=== PATIENT | female | born 1965 | race Caucasian/White ===

== ENCOUNTER → 2016-11-11 | Outpatient (CLI) | payer BC ==
--- NOTE | 2016-11-12 14:02 | MAMMOGRAPHY REPORT ---
BILATERAL DIGITAL SCREENING MAMMOGRAM TOMOSYNTHESIS WITH CAD: 11/11/2016 CLINICAL HISTORY: Routine screening. Patient has no complaints. TECHNIQUE: Breast tomosynthesis in addition to standard 2D mammography was performed. Current study was also evaluated with a Computer Aided Detection (CAD) system. COMPARISON: Comparison is made to exam dated: 12/11/2014 mammogram - [facility]. BREAST COMPOSITION: There are scattered areas of fibroglandular density in both breasts. FINDINGS: No suspicious masses, calcifications, or areas of architectural distortion are noted in ei ther breast. There has been no significant interval change compared to prior exams. IMPRESSION: ACR BI-RADS CATEGORY 1: NEGATIVE There is no mammographic evidence of malignancy. A 1 year screening mammogram is recommended. The pa tient will receive written notification of the results. Approximately 10% of breast cancers are not detected with mammography. A negative mammographic report should not delay biopsy if a clinically suggestive mass is present. Beverly Vázquez M.D. ah/:11/11/2016 16:36:09 Content Production Specialist: Taylor NEFF(Hallie)(Rodolfo), [facility] letter sent: Normal 1/2 BI-RADS Code: ACR BI-RADS Category 1: Negative
== END | disposition home or self-care (01) ==
LOC: C.MAMM 12:15
PROVIDERS: ATTEND Nurse Practitioner Family
DX: Z12.31 Encounter for screening mammogram for malignant neoplasm of breast (principal)

== ENCOUNTER → 2017-11-12 | Outpatient (CLI) | payer OTHER ==
--- NOTE | 2017-11-12 15:28 | MAMMOGRAPHY REPORT ---
BILATERAL DIGITAL SCREENING MAMMOGRAM TOMOSYNTHESIS WITH CAD: 11/12/2017 CLINICAL HISTORY: Routine screening. Patient has no complaints. TECHNIQUE: The study was acquired using full field digital technology and interpreted from soft copy. Breast tomosynthesis in addition to standard 2D mammography was performed. Current study was also ev aluated with a Computer Aided Detection (CAD) system. COMPARISON: Comparison is made to exams dated: 11/11/2016 mammogram and 12/11/2014 mammogram - [facility]. Outside mammograms dated 2009, 2012 from [facility]. BREAST COMPOSITION: The tissue of both breasts is almost entirely fatty. FINDINGS: No suspicious masses, calcifications, or areas of architectural distortion are noted in either breast . There has been no significant interval change compared to prior exams. A small mass in the right u pper outer quadrant is stable dating back to at least the 2009 exam and likely represents an intramam jason lymph node. IMPRESSION: ACR BI-RADS CATEGORY 2: BENIGN There is no mammographic evidence of malignancy. A 1 year screening mammogram is recommended.( 019) The patient will receive written notification of the results. Some breast cancers are not detected with mammography. A negative mammographic report should not yisel y biopsy if a clinically suggestive mass is present. Beverly Vázquez M.D. ah/:11/12/2017 12:38:47 Laydown Machine Operator: RT Leni(R)(M), [facility] letter sent: Normal 1/2 BI-RADS Code: ACR BI-RADS Category 2: Benign
== END | disposition home or self-care (01) ==
LOC: C.MAMM 12:15
PROVIDERS: ATTEND Nurse Practitioner Family
DX: Z12.31 Encounter for screening mammogram for malignant neoplasm of breast (principal)

== ENCOUNTER 2018-09-16 19:47 | Inpatient (IN) ==
[2018-09-16] MEDS ORDERED: PANTOprazole 80 MG in DEXTROSE 5% 100 ML IV STA (20:14)
[2018-09-16] MEDS ORDERED: SODIUM CHLORIDE 0.9% 1000ML 1,000 ML IV SCH (20:15)
[2018-09-16] MEDS ORDERED: ONDANSETRON INJ 2 MG/ML 2 ML VIAL IV STA ×2 (20:17→22:54)
[2018-09-16 20:24] LABS: Basophils # (auto) 0.05 K/uL (0-0.2); Basophils % (auto) 0.5 %; Eosinophils # (auto) 0.09 K/uL (0-0.5); Eosinophils % (auto) 0.8 %; Hematocrit (blood only) 37.9 % (37-47); Hemoglobin 12.8 g/dL (12.0-16.0); Immature Granulocytes # (auto) 0.06 K/uL (0.00-0.02); Immature Granulocytes % (auto) 0.5 %; Lymphocytes # (auto) 4.24 K/uL (1.2-3.4); Lymphocytes % (auto) 38.5 %; Mean Corpuscular Hgb Conc 33.8 g/dL (32-36); Mean Corpuscular Volume 91.3 fL (80-100); Mean Platelet Volume 10.9 fL (7.4-10.4); Monocytes % (auto) 6.4 %; Neutrophils # (auto) 5.88 K/uL (1.4-6.5); Neutrophils % (auto) 53.3 %; Platelet Count 237 K/uL (130-400); RDW Coefficient of Variation 13.1 % (11.5-14.5); RDW Standard Deviation 43.7 fL (36.4-46.3); Red Blood Count 4.15 M/uL (4.2-5.4); White Blood Count 11.02 K/uL (4.8-10.8)
[2018-09-16] MEDS ORDERED: PANTOprazole 40 MG in DEXTROSE 5% 100 ML IV SCH (20:30)
[2018-09-16 20:35] LABS: Partial Thromboplastin Ratio 0.9; Partial Thromboplastin Time 24.2 Seconds (21.0-31.0); Prothrombin Time 9.9 Seconds (9.0-12.0)
[2018-09-16 20:40] LABS: Albumin Level 3.8 gm/dl (3.4-5.0); BUN Creatinine Ratio 46.2 (10-20); Calcium 9.4 mg/dl (8.5-10.1); Est GFR (African American) 92.7; Est GFR (Non-African American) 79.9
[2018-09-16 20:43] LABS: Albumin Globulin Ratio 1.1 (0.9-2); Bilirubin,Total 0.3 mg/dl (0.2-1); Globulin 3.4 gm/dl (2.5-4.0); Total Protein 7.2 gm/dl (6.4-8.2)
[2018-09-16] MEDS ORDERED: IOVERSOL 100ml IV PRN (21:06)
--- NOTE | 2018-09-16 21:33 | Emergency Department Note ---
Entered by Madhavi Garland acting as a scribe for Sadiq Nielsen DO History of Present Illness General Chief complaint: GI Assessment Stated complaint: VOMITING - LOOKS LIKE BLOOD WITH IT Time Seen by Provider: 09/16/18 20:03 Source: patient History of Present Illness Provider complaint: Vomiting Onset (ago): hour(s) 3 Location: abdomen Pain Consistency: + other (epsiode) Maximum Pain Intensity: 2 Quality: + other (vomiting) Associated symptoms: + nausea/vomiting (nausea) and + other (abdominal pain, hot) The patient is a 52 year old female who presents to the ED with complaints of an episode of vomiting that began 3 hours ago. The patient states that she has felt nauseas with intermittent abdominal pain for the past 4 days. The patient states that at 1700 today, her nausea and abdominal pain worsened. The patient notes that she tried lying down, but it did not help the pain. The patient notes that she has vomited 3 times at home and 2 times on the car ride here. The patient states that it looks like there is blood present in her vomit. The patient states that she does not feel any pain at this time, she just feels "hot" and nauseas. Home Medications Home Medications Medication Instructions Recorded Confirmed Type qyszrrg-unbodcztwlzfx-kjrskxxo 2 tab PO Q6H PRN 09/16/18 09/16/18 History [Excedrin Extra Strength] diphenhydramine-acetaminophen 2 tab PO HS PRN 09/16/18 09/16/18 History [Tylenol PM Extra Strength] lisinopril 10 mg PO QAM 09/16/18 09/16/18 History omeprazole 20 mg PO QAM 09/16/18 09/16/18 History sumatriptan succinate 50 mg PO UD 09/16/18 09/16/18 History Allergies Allergy/AdvReac Type Severity Reaction Status Date / Time No Known Allergies Allergy Unverified 09/16/18 21:22 Past Med/Surg History Medical History Migraine (Chronic) Pyloric stenosis Surgical History H/O gastric bypass (Resolved) Social History marital status: Current Living Situation: Spouse Feels Safe at Home: Yes Smoking Status: Never smoker Review of Systems See HPI for pertinent positives & negatives. and A total of 10 systems reviewed and were otherwise negative Physical Exam Vital Signs Vital Signs - 24 hr 09/16/18 19:51 09/16/18 20:10 09/16/18 20:38 Temperature 36.9 C Temperature Source Oral Sepsis Recent Fever Within 48 Hours No Sepsis Action Taken by Nursing No Action Required Pulse Rate 148 H 127 H 113 H Pulse Rate [Right Finger] Pulse Rate from SpO2 Sensor Pulse Rhythm Respiratory Rate 18 22 16 Respiratory Depth Normal Blood Pressure 155/89 H 141/99 H 130/90 Blood Pressure [Left Arm] Blood Pressure Mean 111 113 103 Blood Pressure Mean [Left Arm] Blood Pressure Position [Left Arm] Pulse Oximetry 98 97 Oxygen Delivery Method Room Air Room Air 09/16/18 20:52 09/16/18 21:27 09/16/18 21:30 Temperature Temperature Source Sepsis Recent Fever Within 48 Hours Sepsis Action Taken by Nursing Pulse Rate 117 H 123 H 117 H Pulse Rate [Right Finger] Pulse Rate from SpO2 Sensor 125 H 117 H Pulse Rhythm Regular Respiratory Rate 14 17 Respiratory Depth Blood Pressure 148/116 H 147/97 H Blood Pressure [Left Arm] Blood Pressure Mean 126 113 Blood Pressure Mean [Left Arm] Blood Pressure Position [Left Arm] Pulse Oximetry 97 98 97 Oxygen Delivery Method Room Air Room Air Room Air 09/16/18 22:00 09/16/18 22:30 09/16/18 23:00 Temperature Temperature Source Sepsis Recent Fever Within 48 Hours Sepsis Action Taken by Nursing Pulse Rate 116 H 115 H 119 H Pulse Rate [Right Finger] Pulse Rate from SpO2 Sensor 120 H 112 H 118 H Pulse Rhythm Respiratory Rate 12 18 18 Respiratory Depth Blood Pressure 139/94 144/86 H 111/88 Blood Pressure [Left Arm] Blood Pressure Mean 109 105 95 Blood Pressure Mean [Left Arm] Blood Pressure Position [Left Arm] Pulse Oximetry 95 98 97 Oxygen Delivery Method Room Air Room Air Room Air 09/17/18 00:00 09/17/18 00:11 Temperature Temperature Source Sepsis Recent Fever Within 48 Hours Sepsis Action Taken by Nursing Pulse Rate 105 H Pulse Rate [Right Finger] 109 H Pulse Rate from SpO2 Sensor 105 H Pulse Rhythm Respiratory Rate 16 18 Respiratory Depth Blood Pressure 118/74 Blood Pressure [Left Arm] 142/94 H Blood Pressure Mean 88 Blood Pressure Mean [Left Arm] 110 Blood Pressure Position [Left Arm] Sitting Pulse Oximetry 96 98 Oxygen Delivery Method Room Air Room Air CONSTITUTIONAL/VITAL SIGNS: Reviewed / noted above. GENERAL: Non-toxic in appearance. INTEGUMENTARY: Warm, dry, and [place]. HEAD: Normocephalic. EYES: without scleral icterus or trauma. ENT/OROPHARYNX: clear and moist. LYMPHADENOPATHY/NECK: Is supple without lymphadenopathy or meningismus. RESPIRATORY: Lungs clear and equal. CARDIOVASCULAR: Regular rate and rhythm. GI/ABDOMEN: Soft and nontender. No organomegaly or pulsatile mass. No rebound or guarding. Normal bowel sounds. EXTREMITIES: Warm and well perfused. BACK: No CVA tenderness. NEUROLOGICAL: Intact without focal deficits. PSYCHIATRIC: normal affect. MUSCULOSKELETAL: Normally developed with good muscle tone. Course 2004: Past medical records reviewed. The patient was evaluated in room B10. A complete history and physical exam was performed. []: I discussed the patient's case with Dr. Woo- GI specialist. He is in agreement with the patient being admitted here and will see the patient in the morning . Administered Medications Pantoprazole Sodium 40 mg/ (Dextrose) 100 mls @ 20 mls/hr IV Q5H TITA Stop: 09/17/18 01:29 Last Admin: 09/16/18 20:40 Dose: 20 mls/hr Documented by: [id number] Sodium Chloride (Nss 1000ml) 1,000 mls @ 100 mls/hr IV .Q10H TITA Stop: 09/17/18 06:14 Last Admin: 09/16/18 20:15 Dose: 100 mls/hr Documented by: [id number] Ioversol (Optiray 320 100ml) 95 ml IV ONCE PRN PRN Reason: Interaction Checking Stop: 09/20/18 21:05 Last Admin: 09/16/18 21:07 Dose: 1 ml Documented by: [id number] Discontinued Medications Pantoprazole Sodium 80 mg/ (Dextrose) 120 mls @ 480 mls/hr IV NOW STA Stop: 09/16/18 20:28 Last Infusion: 09/16/18 20:55 Dose: 0 mls/hr Documented by: [id number] Admin: 09/16/18 20:40 Dose: 480 mls/hr Documented by: [id number] Ondansetron HCl (Zofran) 4 mg IV NOW STA Stop: 09/16/18 20:18 Last Admin: 09/16/18 20:30 Dose: 4 mg Documented by: [id number] Ondansetron HCl (Zofran) 4 mg IV NOW STA Stop: 09/16/18 22:55 Last Admin: 09/16/18 23:13 Dose: 4 mg Documented by: [id number] Medical Decision Making Differential Diagnosis Differential diagnosis: Etiologies such as esophagitis, variceal bleed, [place], [place] tear, gastritis, peptic ulcer disease, AVM, inflammatory bowel disease, ischemia, diverticulosis, colitis, malignancy, coagulopathy, thrombocytopenia, fissure, hemorrhoid, epistaxis , as well as others were entertained. Medical Records Attestation: I reviewed the patient's medical records. Home Medications Current Medication List: was personally reviewed by me Laboratory Data Attestation: I reviewed the patient's lab results. Result diagrams: 09/16/18 20:14 09/16/18 20:14 Lab Results 09/16/18 09/16/18 09/16/18 Range/Units 20:14 20:14 20:14 WBC 11.02 H (4.8-10.8) K/uL RBC 4.15 L (4.2-5.4) M/uL Hgb 12.8 (12.0-16.0) g/dL Hct 37.9 (37-47) % MCV 91.3 (80-100) fL MCH 30.8 (25-34) pg MCHC 33.8 (32-36) g/dL RDW Std Deviation 43.7 (36.4-46.3) fL RDW Coeff of Buddy 13.1 (11.5-14.5) % Plt Count 237 (130-400) K/uL MPV 10.9 H (7.4-10.4) fL Immature Gran % (Auto) 0.5 % Neut % (Auto) 53.3 % Lymph % (Auto) 38.5 % [place] % (Auto) 6.4 % Eos % (Auto) 0.8 % Baso % (Auto) 0.5 % Immature Gran # (Auto) 0.06 H (0.00-0.02) K/uL Neut # (Auto) 5.88 (1.4-6.5) K/uL Lymph # (Auto) 4.24 H (1.2-3.4) K/uL [place] # (Auto) 0.70 H (0.11-0.59) K/uL Eos # (Auto) 0.09 (0-0.5) K/uL Baso # (Auto) 0.05 (0-0.2) K/uL PT 9.9 (9.0-12.0) Seconds INR 1.0 (0.9-1.1) APTT 24.2 (21.0-31.0) Seconds PTT Ratio 0.9 Sodium 142 (136-145) mmol/L Potassium 4.0 (3.5-5.1) mmol/L Chloride 107 (98-107) mmol/L Carbon Dioxide 28 (21-32) mmol/L Anion Gap 7.0 (3-11) BUN 39 H (7-18) mg/dl Creatinine 0.83 (0.6-1.2) mg/dl Est Cr Clr Drug Dosing 94.0 ml/min Est GFR ( Amer) 92.7 Est GFR (Non-Af Amer) 79.9 BUN/Creatinine Ratio 46.2 H (10-20) Glucose 128 H (70-99) mg/dl Calcium 9.4 (8.5-10.1) mg/dl Total Bilirubin 0.3 (0.2-1) mg/dl AST 21 (15-37) U/L ALT 36 (12-78) U/L Alkaline Phosphatase 97 (45-117) U/L Total Protein 7.2 (6.4-8.2) gm/dl Albumin 3.8 (3.4-5.0) gm/dl Globulin 3.4 (2.5-4.0) gm/dl Albumin/Globulin Ratio 1.1 (0.9-2) POC Stool Occult Blood (Negative) Blood Type Antibody Screen 09/16/18 09/16/18 Range/Units 20:29 20:37 WBC (4.8-10.8) K/uL RBC (4.2-5.4) M/uL Hgb (12.0-16.0) g/dL Hct (37-47) % MCV (80-100) fL MCH (25-34) pg MCHC (32-36) g/dL RDW Std Deviation (36.4-46.3) fL RDW Coeff of Buddy (11.5-14.5) % Plt Count (130-400) K/uL MPV (7.4-10.4) fL Immature Gran % (Auto) % Neut % (Auto) % Lymph % (Auto) % [place] % (Auto) % Eos % (Auto) % Baso % (Auto) % Immature Gran # (Auto) (0.00-0.02) K/uL Neut # (Auto) (1.4-6.5) K/uL Lymph # (Auto) (1.2-3.4) K/uL [place] # (Auto) (0.11-0.59) K/uL Eos # (Auto) (0-0.5) K/uL Baso # (Auto) (0-0.2) K/uL PT (9.0-12.0) Seconds INR (0.9-1.1) APTT (21.0-31.0) Seconds PTT Ratio Sodium (136-145) mmol/L Potassium (3.5-5.1) mmol/L Chloride (98-107) mmol/L Carbon Dioxide (21-32) mmol/L Anion Gap (3-11) BUN (7-18) mg/dl Creatinine (0.6-1.2) mg/dl Est Cr Clr Drug Dosing ml/min Est GFR ( Amer) Est GFR (Non-Af Amer) BUN/Creatinine Ratio (10-20) Glucose (70-99) mg/dl Calcium (8.5-10.1) mg/dl Total Bilirubin (0.2-1) mg/dl AST (15-37) U/L ALT (12-78) U/L Alkaline Phosphatase (45-117) U/L Total Protein (6.4-8.2) gm/dl Albumin (3.4-5.0) gm/dl Globulin (2.5-4.0) gm/dl Albumin/Globulin Ratio (0.9-2) POC Stool Occult Blood Positive A (Negative) Blood Type O Positive Antibody Screen NEGATIVE Imaging Data Radiologist's Impression: Radiology results as stated below per my review and the radiologist's interpretation: CT OF THE ABDOMEN AND PELVIS WITH CONTRAST CLINICAL HISTORY: Epigastric pain. Upper GI bleed. COMPARISON STUDY: None. TECHNIQUE: Following IV administration of 95 mL of Optiray-320, axial images of the abdomen and pelvis were obtained from the lung bases to the proximal femurs. Images were reviewed in the axial, sagittal, and coronal planes. IV contrast was administered without complication. Automated exposure control was utilized for the study. A dose lowering technique was utilized adhering to the principles of ALARA. CT DOSE: 926.12 mGy.cm FINDINGS: There are mild groundglass opacities within the left lower lobe. There are postoperative findings consistent with Fitz-en-Y gastric bypass. There is no evidence for a bowel obstruction. No pneumatosis, free air or portal venous gas is present. Caliber and wall thickness of small and large bowel are normal. The appendix is normal. There is no ascites or lymphadenopathy. Major vasculature is patent. There is no biliary ductal dilatation status post cholecystectomy. The liver, spleen, adrenal glands and kidneys are unremarkable with exception of a 4 mm calculus within the lower pole of the left kidney. There are no ureteral catheter. There is no hydronephrosis. No suspicious osseous lesion is noted. IMPRESSION: 1. No acute process within the abdomen or pelvis. 2. Status post Fitz-en-Y gastric bypass. No bowel obstruction. No bowel wall thickening. 3. 4 mm left renal calculus. No ureteral calculi. Electronically signed by: George Vaz M.D. 09/16/2018 9:42 PM ECG Data Attestation: I personally reviewed and interpreted this ECG as follows: Indication: nausea Rate (beats per minute): 117 Rhythm: sinus tachycardia Findings: no PAC, no PVC, no ST elevation and no ectopy Blood Pressure Blood Pressure Findings: Normal blood pressure Blood Pressure Disposition: did not require urgent referral MDM Narrative This is a 52-year-old female who presents to the ED with a chief complaint of vomiting blood. The patient states that she has had some nausea for the past 3 or 4 days. She states that she developed some abdominal cramps this morning. This evening about 5 PM, she developed vomiting. She was vomiting some blood. She vomited blood about 4 times. She does report history of gastric bypass. She has been taking Excedrin and Imitrex for migraines. She uses Excedrin daily. She states that she takes lisinopril for hypertension and Prilosec for reflux. The patient had her gastric bypass done in [facility] and has had endoscopy for ulcers by Dr. Mauricio in [place]. She is not on any blood thinners. She currently is not having any abdominal pains. Her initial blood pressure was elevated as was her heart rate. Abdomen is soft and nontender on exam. Stool is light brown guaiac positive. She states that she has intermittently had black stools. The patient CBC is unremarkable. Her hemoglobin is 12.8. White blood cell count is 11.0. BUN is 39. Chemistry panel is otherwise unremarkable. CT scan of the abdomen pelvis did not show acute process. I spoke with Dr. Woo about the patient. He is in agreement with the patient staying overnight in the hospital for observation. I spoke with Dr. Dejesus who will admit the patient. Impression & Plan Upper gastrointestinal hemorrhage Discharge Plan Visit Data Chief Complaint: GI Assessment Stated Complaint: VOMITING - LOOKS LIKE BLOOD WITH IT ED Provider: Sadiq Nielsen Discharge Problem: Upper gastrointestinal hemorrhage Patient Disposition: Being Evaluated by Hospitalist Forms Stand Alone Forms: My [facility] Prescriptions Prescriptions: No Action sumatriptan succinate 50 mg tablet 50 mg PO UD RF: 0 lisinopril 10 mg tablet 10 mg PO QAM RF: 0 omeprazole 20 mg capsule,delayed release(DR/EC) 20 mg PO QAM RF: 0 diphenhydramine-acetaminophen [Tylenol PM Extra Strength] 25-500 mg Tablet 2 tab PO HS PRN (Reason: Migraine Headache) RF: 0 Excedrin Extra Strength 250-250-65 mg Tablet 2 tab PO Q6H PRN (Reason: Migraine Headache) RF: 0 Referrals Referrals: Jagruti Seay [Primary Care Provider] - The scribe's documentation has been prepared under my direction and personally reviewed by me in its entirety. I confirm that the note above accurately reflects all work, treatment, procedures, and medical decision making performed by me.
--- NOTE | 2018-09-16 21:44 | CT Scan Report ---
CT OF THE ABDOMEN AND PELVIS WITH CONTRAST CLINICAL HISTORY: Epigastric pain. Upper GI bleed. COMPARISON STUDY: None. TECHNIQUE: Following IV administration of 95 mL of Optiray-320, axial images of the abdomen and pelvi s were obtained from the lung bases to the proximal femurs. Images were reviewed in the axial, sagitt al, and coronal planes. IV contrast was administered without complication. Automated exposure contro l was utilized for the study. A dose lowering technique was utilized adhering to the principles of A DILIA. CT DOSE: 926.12 mGy.cm FINDINGS: There are mild groundglass opacities within the left lower lobe. There are postoperative fi ndings consistent with Fitz-en-Y gastric bypass. There is no evidence for a bowel obstruction. No pne umatosis, free air or portal venous gas is present. Caliber and wall thickness of small and large bow el are normal. The appendix is normal. There is no ascites or lymphadenopathy. Major vasculature is p atent. There is no biliary ductal dilatation status post cholecystectomy. The liver, spleen, adrenal glands and kidneys are unremarkable with exception of a 4 mm calculus within the lower pole of the le ft kidney. There are no ureteral catheter. There is no hydronephrosis. No suspicious osseous lesion i s noted. IMPRESSION: 1. No acute process within the abdomen or pelvis. 2. Status post Fitz-en-Y gastric bypass. No bowel obstruction. No bowel wall thickening. 3. 4 mm left renal calculus. No ureteral calculi. Electronically signed by: George Vaz M.D. 09/16/2018 9:42 PM
--- NOTE | 2018-09-17 01:46 | History & Physical Report ---
Date of Service September 17, 2018 Assessment & Plan (1) Upper gastrointestinal hemorrhage: 52-year-old female with a past medical history of hypertension, migraines, peptic ulcer disease, pyloric stenosis and gastric bypass surgery presents with hematemesis in the setting of persistent epigastric pain. Hematemesis Stool occult blood was positive GI consulted, appreciate recommendations H&H every 4 hour, hemoglobin 12.8 on admission Continue Protonix drip, continue Zofran Keep patient n.p.o., hold home medications Hypertension Hold lisinopril 10 mg Migraines Hold Excedrin, provide education regarding risk for PUD CODE STATUS Full DVT prophylaxis SCDs/ambulate (2) Hematemesis: (3) History of peptic ulcer: (4) History of gastric bypass: (5) HTN (hypertension): (6) Migraines: History of Present Illness Primary Care Provider: Jagruti Seay 52-year-old female with a past medical history of hypertension, migraines, peptic ulcer disease, pyloric stenosis and gastric bypass surgery presents with hematemesis in the setting of persistent epigastric pain. Patient states that the pain began today shortly after lunchtime. She struggled throughout the rest of the workday with the abdominal pain and when she got home around 5:30 PM she started to develop nausea and vomiting. She stated that the vomit was brown/red in the toilet. She reports 3-4 episodes of vomiting prior to coming to the hospital. She denies blood in her stool. Patient reports a history of peptic ulcers that have been controlled with omeprazole. Patient states that her last EGD was approximately 10 years ago. The patient also received a colonoscopy at age 48 which she thinks was normal. She denies a family history of inflammatory bowel disease or colon cancer. She states that she takes 2-4 Excedrin per day for headaches. She admits to drinking approximately 4 alcoholic beverages per week, mostly isolated to the weekend. Patient describes history of pyloric stenosis diagnosed as an adult. She states that her symptoms prior to diagnosis were chronic nausea and abdominal fullness. She states that she received pylorotomy which relieved the symptoms. This occurred prior to her gastric bypass in 2005. Patient describes being fairly healthy up to this point. Allergies Allergy/AdvReac Type Severity Reaction Status Date / Time No Known Allergies Allergy Unverified 09/16/18 21:22 Home Medications Home Medications Medication Instructions Recorded Confirmed Type fshwxgr-ynopkaeptecuu-zllytzyh 2 tab PO Q6H PRN 09/16/18 09/16/18 History [Excedrin Extra Strength] diphenhydramine-acetaminophen 2 tab PO HS PRN 09/16/18 09/16/18 History [Tylenol PM Extra Strength] lisinopril 10 mg PO QAM 09/16/18 09/16/18 History omeprazole 20 mg PO QAM 09/16/18 09/16/18 History sumatriptan succinate 50 mg PO UD 09/16/18 09/16/18 History Past Med/Surg History Medical History Headache Migraine (Chronic) Obesity Pyloric stenosis Surgical History H/O gastric bypass (Resolved) Social History Preferred Language: Czech Communication Ability: Effective 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 Beliefs That Will Affect Care: None marital status: Current Living Situation: Spouse Feels Safe at Home: Yes Safety Concerns: Feels Safe At This Time Smoking Status: Never smoker Hx Alcohol Use: Yes Alcohol type: wine Hx Substance Use: No Review of Systems Review of Systems: All systems reviewed & are unremarkable except as noted in HPI & below Physical Exam Constitutional: WD/WN, vitals as above Eyes: PERRL, conjunctivae normal, anicteric sclerae ENMT: external ear and nose normal, oropharynx normal Neck: trachea midline, no thyromegaly Respiratory: normal respiratory effort, lungs clear to auscultation Cardiovascular: RRR, no murmur, no edema Gastrointestinal (Abdomen): Inspection/Auscultation: abdomen normal to inspection, normal bowel sounds and + abdominal surgical scar; abdomen not distended, no high-pitched sounds and no hypoactive bowel sounds Percussion/Palpation: + abdomen tender (Epigastric); no guarding and abdomen not rigid Musculoskeletal: no cyanosis or clubbing, extremities motor strength 5/5 Skin: no rashes, warm and dry Neurologic: PERRL, EOMI, accommodation nl, no face palsy, no dysarthria Psychiatric: A+Ox3, euthymic affect Results & Data Vital Signs (Past 12 Hours) Vital Signs Temp Pulse Pulse Resp BP BP Pulse Ox 09/17/18 01:01 104 H 21 121/71 97 09/17/18 00:12 111 H 21 142/94 H 94 09/17/18 00:11 109 H 18 142/94 H 98 09/17/18 00:05 110 H 15 142/94 H 98 09/17/18 00:00 105 H 16 118/74 96 09/16/18 23:00 119 H 18 111/88 97 09/16/18 22:30 115 H 18 144/86 H 98 09/16/18 22:00 116 H 12 139/94 95 09/16/18 21:30 117 H 17 147/97 H 97 09/16/18 21:27 123 H 14 148/116 H 98 09/16/18 20:52 117 H 97 09/16/18 20:38 113 H 16 130/90 97 09/16/18 20:10 127 H 22 141/99 H 09/16/18 19:51 36.9 C 148 H 18 155/89 H 98 Code Status & VTE Plan Code Status Full code VTE Prophylaxis Plan VTE Prophylaxis will be ordered: Yes Supervising Physician Co-Signing Physician Notes Attending addendum: I have physically seen this patient, have supervised the medical residents activities, and agree with the H&P unless as otherwise noted. Assessment and Plan: GI bleed/history of Fitz-en-Y gastric bypass/history of peptic ulcer disease- Admit to monitored bed. NPO Continue Protonix drip begun in ED. Serial H&H's every 4 hours. Zofran 4 mg IV every 6 hours PRN. Consult gastroenterology. IV fluids. Serial CBC with differential, chemistry profile and magnesium level. Remainder of orders and notations as noted. PG Care Time/CCT Total # of Minutes Spent Total Time Spent with Patient: Total time spent is greater than 50% in coordination of care (as documented) at patient's floor/unit and/or counseling patient: Resident Activity Tracking Resident Involvement: Resident Care Provided Care Provided: Adult Hospital Medicine
[2018-09-17 02:07] LABS: Hematocrit (blood only) 32.2 % (37-47); Hemoglobin 10.7 g/dL (12.0-16.0)
[2018-09-17] MEDS ORDERED: ONDANSETRON INJ 2 MG/ML 2 ML VIAL IV PRN ×2 (02:55→13:54)
[2018-09-17] MEDS ORDERED: PROMETHAZINE HCL 6.25 MG in SODIUM CHLORIDE 0.9% 50 ML IV PRN (02:55)
[2018-09-17] MEDS: PANTOprazole 40 MG in DEXTROSE 5% 100 ML IV SCH ×5 (04:31→23:11)
[2018-09-17] MEDS ORDERED: SODIUM CHLORIDE 0.9% 250 ML IV PRN (07:41)
[2018-09-17 07:42] LABS: Basophils # (auto) 0.04 K/uL (0-0.2); Basophils % (auto) 0.5 %; Eosinophils # (auto) 0.06 K/uL (0-0.5); Eosinophils % (auto) 0.8 %; Hematocrit (blood only) 31.6 % (37-47); Hemoglobin 10.4 g/dL (12.0-16.0); Immature Granulocytes # (auto) 0.04 K/uL (0.00-0.02); Immature Granulocytes % (auto) 0.5 %; Lymphocytes # (auto) 2.81 K/uL (1.2-3.4); Lymphocytes % (auto) 38.1 %; Mean Corpuscular Hgb Conc 32.9 g/dL (32-36); Mean Corpuscular Volume 91.3 fL (80-100); Mean Platelet Volume 10.7 fL (7.4-10.4); Monocytes # (auto) 0.54 K/uL (0.11-0.59); Monocytes % (auto) 7.3 %; Neutrophils # (auto) 3.88 K/uL (1.4-6.5); Neutrophils % (auto) 52.8 %; Platelet Count 198 K/uL (130-400); RDW Coefficient of Variation 13.2 % (11.5-14.5); RDW Standard Deviation 43.7 fL (36.4-46.3); Red Blood Count 3.46 M/uL (4.2-5.4); White Blood Count 7.37 K/uL (4.8-10.8)
--- NOTE | 2018-09-17 07:47 | Family Medicine Progress Note ---
Date of Service September 17, 2018 Assessment & Plan (1) Upper gastrointestinal hemorrhage: GI bleed/acute blood loss anemia/mild hemodynamic changes associated with hypovolemiaIV fluids, blood on hold given her drop in hemoglobin and tachycardia, EGD today given risk for something that may require further intervention. Continue to follow, continue supportive care Headachesrosa isela appears to have classic cycle of migraine and tension headaches playing off of each other, the suboccipital tension headaches being a major causative role of her overall headache cycle. Given that we need to get her off of Excedrin, and given that we want to prevent rebound headaches with other [id number]-rhm-lkgnbti's, OMT directed at alleviating the tension headaches with Imitrex directed specifically for her migraine days appears to be pretty plausible approach to improve her situation. Seems to be furthered by the fact that she showed a very good response to 1 treatment with OMT. Would anticipate ongoing OMT as an outpatient to alleviate the tension headaches, and to continue to educate on more judicious use of the Imitrex specifically for migraines. Somatic dysfunction cervical regionOMT as above Hypertension Hold lisinopril 10 mg, continue to follow Migraines see above under headaches CODE STATUS Full DVT prophylaxis SCDs/ambulate (pharmacologic contraindicated due to GI bleed; mechanical of dubious benefit in actual VTE prevention) (2) Hematemesis: (3) History of peptic ulcer: (4) History of gastric bypass: (5) HTN (hypertension): (6) Migraines: (7) Acute blood loss anemia: (8) Tachycardia: (9) Headache: (10) Somatic dysfunction of cervical region: Supervising Physician Co-Signing Physician Notes note predominantly completed by myself, OMT done by myself. Subjective Seen in follow-up from early a.m. admission. She has not had any further hematemesis. She has had no melena or hematochezia. She does not feel weak or lightheaded. Of note her hemoglobin did drop, and she is tachycardic. Separately she notes that she has frequent and chronic headaches. It is more often than not that she will have a headache every day in a month. She notes most of the more intense mostly left-sided but throbbing, however she has separate headaches that are behind the left eye with visual disturbances and are far more intense. She notes these more intense headaches with the associated neurologic symptoms happen about 3-4 times a month. She notes that when she takes Imitrex she feels worn out for the rest of the day, so she does try to avoid this. Between this and her daily headaches she takes a lot of Excedrin. Case discussed with gastroenterology, endoscopy greatly appreciated. Vitals noted, in general she is awake and alert fatigued but no distress. HEENT normocephalic atraumatic mucous members moist. Breathing unlabored no accessory muscle use good effort. Osteopathic/musculoskeletal shows her left greater than right but bilateral suboccipitals to be high in tone, tender, decreased range of motioninhibitory pressure done bilaterally, good tissue response on the left, patient tolerated well and noted a significant improvement in her headache. GI bleed/acute blood loss anemia/mild hemodynamic changes associated with hypovolemiaIV fluids, blood on hold given her drop in hemoglobin and tachycardia, EGD today given risk for something that may require further intervention. Continue to follow, continue supportive care Headachesrosa isela appears to have classic cycle of migraine and tension headaches playing off of each other, the suboccipital tension headaches being a major causative role of her overall headache cycle. Given that we need to get her off of Excedrin, and given that we want to prevent rebound headaches with other [id number]'s, OMT directed at alleviating the tension headaches with Imitrex directed specifically for her migraine days appears to be pretty plausible approach to improve her situation. Seems to be furthered by the fact that she showed a very good response to 1 treatment with OMT. Would anticipate ongoing OMT as an outpatient to alleviate the tension headaches, and to continue to educate on more judicious use of the Imitrex specifically for migraines. Somatic dysfunction cervical regionOMT as above Review of Systems Review of Systems: All systems reviewed & are unremarkable except as noted in HPI & below Physical Exam Physical Exam: Vitals noted, in general she is awake and alert fatigued but no distress. HEENT normocephalic atraumatic mucous members moist. Breathing unlabored no accessory muscle use good effort. Osteopathic/musculoskeletal shows her left greater than right but bilateral suboccipitals to be high in tone, tender, decreased range of motioninhibitory pressure done bilaterally, good tissue response on the left, patient tolerated well and noted a significant improvement in her headache. Constitutional: WD/WN, vitals as above Eyes: PERRL, conjunctivae normal, anicteric sclerae ENMT: external ear and nose normal, oropharynx normal Neck: trachea midline, no thyromegaly Respiratory: normal respiratory effort, lungs clear to auscultation Cardiovascular: RRR, no murmur, no edema Gastrointestinal (Abdomen): Inspection/Auscultation: abdomen normal to inspection, normal bowel sounds and + abdominal surgical scar; abdomen not distended, no high-pitched sounds and no hypoactive bowel sounds Percussion/Palpation: + abdomen tender (Epigastric); no guarding and abdomen not rigid Musculoskeletal: no cyanosis or clubbing, extremities motor strength 5/5 Skin: no rashes, warm and dry Neurologic: PERRL, EOMI, accommodation nl, no face palsy, no dysarthria Psychiatric: A+Ox3, euthymic affect Results & Data Vital Signs (Past 12 Hours) Vital Signs Temp Pulse Pulse Resp BP BP Pulse Ox 09/17/18 07:17 36.7 C 117 H 16 113/73 100 09/17/18 02:15 36.6 C 113 H 16 137/79 98 09/17/18 02:03 118 H 16 113/69 96 09/17/18 01:01 104 H 21 121/71 97 09/17/18 00:12 111 H 21 142/94 H 94 09/17/18 00:11 109 H 18 142/94 H 98 09/17/18 00:05 110 H 15 142/94 H 98 09/17/18 00:00 105 H 16 118/74 96 09/16/18 23:00 119 H 18 111/88 97 09/16/18 22:30 115 H 18 144/86 H 98 09/16/18 22:00 116 H 12 139/94 95 09/16/18 21:30 117 H 17 147/97 H 97 09/16/18 21:27 123 H 14 148/116 H 98 09/16/18 20:52 117 H 97 09/16/18 20:38 113 H 16 130/90 97 09/16/18 20:10 127 H 22 141/99 H 09/16/18 19:51 36.9 C 148 H 18 155/89 H 98 PG Care Time/CCT Total # of Minutes Spent Total Time Spent with Patient: Total time spent is greater than 50% in coordination of care (as documented) at patient's floor/unit and/or counseling patient: Resident Activity Tracking Resident Involvement: Resident Care Provided Care Provided: Adult Hospital Medicine
[2018-09-17 08:01] LABS: BUN Creatinine Ratio 44.3 (10-20); Calcium 8.6 mg/dl (8.5-10.1); Creatinine Clr Calc Pharmacy 116.8 ml/min; Est GFR (African American) 114.9; Est GFR (Non-African American) 99.2; Potassium 4.4 mmol/L (3.5-5.1)
[2018-09-17] MEDS: SODIUM CHLORIDE 0.9% 1000ML 1,000 ML IV SCH ×2 (08:38→17:01)
[2018-09-17] MEDS ORDERED: DiphenhydrAMINE HCL 50 MG/ML VIAL IV STA (09:28)
--- NOTE | 2018-09-17 13:50 | Anesthesiology Consultation ---
Date of Service September 17, 2018 Assessment & Plan (1) Encounter for pre-operative examination: Chart Review Chart Review: Acceptable Risk for Surgery History Surgery Operation Date: 09/17/18 14:00 Proposed Procedures p EGD Hemostasis - Bandar Woo Height/Weight Height: 5 ft 8 in Weight: 99.7 kg Allergies Allergy/AdvReac Type Severity Reaction Status Date / Time No Known Allergies Allergy Unverified 09/16/18 21:22 Medications Home Medications Medication Instructions Recorded Confirmed Last Taken [id number]-nofpriofkvtfr-wdkszduf 2 tab PO Q6H PRN 09/16/18 09/16/18 09/16/18 13:00 [Excedrin Extra Strength] 2 tablets diphenhydramine-acetaminophen 2 tab PO HS PRN 09/16/18 09/16/18 09/15/18 21:00 [Tylenol PM Extra Strength] lisinopril 10 mg PO QAM 09/16/18 09/16/18 09/16/18 omeprazole 20 mg PO QAM 09/16/18 09/16/18 09/16/18 sumatriptan succinate 50 mg PO UD 09/16/18 09/16/18 Unknown Active Medications Generic Name Dose Route Start Last Admin Trade Name Freq PRN Reason Stop Dose Admin Pantoprazole Sodium 40 mg/ 100 mls @ 20 mls/hr 09/17/18 03:30 09/17/18 13:10 Dextrose IV 10/17/18 03:29 20 mls/hr Q5H TITA Administration Sodium Chloride 1,000 mls @ 125 mls/hr 09/17/18 07:45 09/17/18 08:38 Nss 1000ml IV 10/17/18 07:44 125 mls/hr .Q8H TITA Administration Past Medical History Medical History Migraine (Chronic) Obesity Pyloric stenosis Past Surgical History Surgical History H/O gastric bypass (Resolved) Social History Smoking Status: Never smoker Hx Alcohol Use: Yes Alcohol type: wine alcohol intake frequency: holidays/special occasions only Hx Substance Use: No Physical Exam Vital Signs Last Vital Signs Temp 36.8 C 09/17/18 11:21 Pulse 96 H 09/17/18 11:21 Resp 16 09/17/18 11:21 BP 105/71 09/17/18 11:21 Pulse Ox 96 09/17/18 11:21 Testing Laboratory Results 09/17/18 07:18 09/17/18 07:18 09/16/18 09/16/18 20:14 20:29 PT 9.9 INR 1.0 APTT 24.2 Blood Type O Positive Antibody Screen NEGATIVE 09/17/18 07:18 09/17/18 07:18 09/16/18 09/16/18 20:14 20:29 PT 9.9 INR 1.0 APTT 24.2 Blood Type O Positive Antibody Screen NEGATIVE Electrocardiogram Date: 09/16/18 Findings: + ST @ (117)
[2018-09-17] MEDS ORDERED: ATROPINE SULFATE 0.1 MG/ML 10ML SYR IV PRN (13:54)
--- NOTE | 2018-09-17 14:00 | History & Physical Report ---
Date of Service September 17, 2018 History of Present Illness Chief Complaint: hematemesis Primary Care Provider: Jagruti Seay For EGD Allergies Allergy/AdvReac Type Severity Reaction Status Date / Time No Known Allergies Allergy Unverified 09/16/18 21:22 Home Medications Home Medications Medication Instructions Recorded Confirmed Type mtusjec-ljfqlyjrmuhtd-uskufzhp 2 tab PO Q6H PRN 09/16/18 09/16/18 History [Excedrin Extra Strength] diphenhydramine-acetaminophen 2 tab PO HS PRN 09/16/18 09/16/18 History [Tylenol PM Extra Strength] lisinopril 10 mg PO QAM 09/16/18 09/16/18 History omeprazole 20 mg PO QAM 09/16/18 09/16/18 History sumatriptan succinate 50 mg PO UD 09/16/18 09/16/18 History Past Med/Surg History Medical History Migraine (Chronic) Obesity Pyloric stenosis Surgical History H/O gastric bypass (Resolved) Social History Preferred Language: French Communication Ability: Effective 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 Beliefs That Will Affect Care: None marital status: Current Living Situation: Spouse Feels Safe at Home: Yes Safety Concerns: Feels Safe At This Time Smoking Status: Never smoker Hx Alcohol Use: Yes Alcohol type: wine Hx Substance Use: No Physical Exam Constitutional: + obese Respiratory: normal respiratory effort Cardiovascular: Rate/Rhythm: regular rate and regular rhythm Gastrointestinal (Abdomen): Percussion/Palpation: abdomen soft Epigastric scar Results & Data Vital Signs (Past 12 Hours) Vital Signs Temp Pulse Pulse Resp BP BP Pulse Ox 09/17/18 11:21 36.8 C 96 H 16 105/71 96 09/17/18 07:17 36.7 C 117 H 16 113/73 100 09/17/18 02:15 36.6 C 113 H 16 137/79 98 09/17/18 02:03 118 H 16 113/69 96 Code Status & VTE Plan VTE Prophylaxis Plan VTE Prophylaxis will be ordered: Yes
[2018-09-17] MEDS ORDERED: LIDOCAINE HCL 2% 2 ML VIAL/AMP(20MG/ML) INFIL ONE (14:13)
[2018-09-17] MEDS ORDERED: PROPOFOL IV EMULSION 10 MG/ML 20 ML VIAL IV ONE (14:13)
--- NOTE | 2018-09-17 14:46 | GI REPORT ---
Patient Name: Rebeka Vu Procedure Date: 09/17/2018 1:56 PM Date of : 1965 Admit Type: Inpatient Age: 52 Gender: Female Attending MD: Bandar Woo MD Procedure: Upper GI endoscopy Providers: Bandar Woo MD Referring MD: Referred Self Indications: Hematemesis Medicines: Propofol total dose 200 mg IV, Lidocaine 40 mg IV Complications: No immediate complications. Estimated Blood Loss: Estimated blood loss: none. Procedure: Pre-Anesthesia Assessment: - Prior to the procedure, a History and Physical was performed, and patient medications, allergies and sensitivities were reviewed. The patient's tolerance of previous anesthesia was reviewed. - The risks and benefits of the procedure and the sedation options and risks were discussed with the patient. All questions were answered and informed consent was obtained. After obtaining informed consent, the endoscope was passed under direct vision. Throughout the procedure, the patient's blood pressure, pulse, and oxygen saturations were monitored continuously. The Endoscope was introduced through the mouth, and advanced to the body of the stomach. The upper GI endoscopy was accomplished without difficulty. The patient tolerated the procedure well. Findings: The Z-line was regular and was found 39 cm from the incisors. The examined esophagus was normal. Evidence of a Fitz-en-Y gastrojejunostomy was found. The gastrojejunal anastomosis was characterized by ulceration. This was not traversed. [Jejunojejunal Description]. [Rdmg-kx-Dltenqx Examined?] [Mlfm-rk-Ofeejac Length] [Rhfv-xr-Zjfvlnj Description]. Two non-bleeding linear gastric ulcers with a visible vessel were found at the anastomosis. The largest lesion was 7 mm in largest dimension. For hemostasis, two hemostatic clips were successfully placed (MR conditional). There was no bleeding during, or at the end, of the procedure. Impression: - Z-line regular, 39 cm from the incisors. - Normal esophagus. - Fitz-en-Y gastrojejunostomy with gastrojejunal anastomosis characterized by ulceration. - Non-bleeding gastric ulcers with a visible vessel. Clips (MR conditional) were placed. - No specimens collected. Recommendation: - [facility]. Bandar Woo M.D. Bandar Woo MD 09/17/2018 2:45:39 PM This report has been signed electronically. Note Initiated On: 09/17/2018 1:56 PM Number of Addenda: 0 I attest to the content of the Intraoperative Record and orders documented therein, exceptions below {[id number]}
--- NOTE | 2018-09-17 16:20 | Anesthesiology Progress Note ---
Date of Service September 17, 2018 Anesthesia Post Procedure Vital Signs Vital Signs: Temp Pulse Pulse Resp BP BP Pulse Ox 09/17/18 15:52 36.7 C 92 H 18 109/72 98 09/17/18 15:30 36.8 C 91 H 20 126/77 991 H 09/17/18 15:20 36.8 C 92 H 21 126/77 97 09/17/18 15:10 36.8 C 101 H 22 116/77 97 09/17/18 15:00 36.8 C 91 H 18 106/64 97 09/17/18 14:50 36.9 C 89 18 90/52 L 96 09/17/18 14:43 36.9 C 94 H 16 84/51 L 96 09/17/18 11:21 36.8 C 96 H 16 105/71 96 09/17/18 07:17 36.7 C 117 H 16 113/73 100 09/17/18 02:15 36.6 C 113 H 16 137/79 98 09/17/18 02:03 118 H 16 113/69 96 09/17/18 01:01 104 H 21 121/71 97 09/17/18 00:12 111 H 21 142/94 H 94 09/17/18 00:11 109 H 18 142/94 H 98 09/17/18 00:05 110 H 15 142/94 H 98 09/17/18 00:00 105 H 16 118/74 96 09/16/18 23:00 119 H 18 111/88 97 09/16/18 22:30 115 H 18 144/86 H 98 09/16/18 22:00 116 H 12 139/94 95 09/16/18 21:30 117 H 17 147/97 H 97 09/16/18 21:27 123 H 14 148/116 H 98 09/16/18 20:52 117 H 97 09/16/18 20:38 113 H 16 130/90 97 09/16/18 20:10 127 H 22 141/99 H 09/16/18 19:51 36.9 C 148 H 18 155/89 H 98 Transfer of Care Handoff Completed per policy Notes Mental Status: alert / awake / arousable Patient Amnestic to Procedure: Yes Nausea / Vomiting: adequately controlled Pain: adequately controlled Airway Patency, RR, SpO2: stable & adequate BP & HR: stable & adequate Hydration State: stable & adequate Anesthetic Complications: no major complications apparent
[2018-09-18] MEDS ORDERED: SUMAtriptan succinate 100 MG TAB PO STA (00:37)
[2018-09-18] MEDS: SODIUM CHLORIDE 0.9% 1000ML 1,000 ML IV SCH ×2 (01:21→07:32)
[2018-09-18] MEDS: PANTOprazole 40 MG in DEXTROSE 5% 100 ML IV SCH (04:01)
[2018-09-18 05:39] LABS: Basophils # (auto) 0.02 K/uL (0-0.2); Basophils % (auto) 0.4 %; Eosinophils # (auto) 0.08 K/uL (0-0.5); Eosinophils % (auto) 1.7 %; Hematocrit (blood only) 27.5 % (37-47); Hemoglobin 9.1 g/dL (12.0-16.0); Immature Granulocytes # (auto) 0.01 K/uL (0.00-0.02); Immature Granulocytes % (auto) 0.2 %; Lymphocytes % (auto) 44.9 %; Mean Corpuscular Hgb Conc 33.1 g/dL (32-36); Mean Corpuscular Volume 90.8 fL (80-100); Mean Platelet Volume 10.1 fL (7.4-10.4); Monocytes # (auto) 0.26 K/uL (0.11-0.59); Monocytes % (auto) 5.6 %; Neutrophils # (auto) 2.21 K/uL (1.4-6.5); Neutrophils % (auto) 47.2 %; Platelet Count 161 K/uL (130-400); RDW Coefficient of Variation 13.1 % (11.5-14.5); RDW Standard Deviation 43.4 fL (36.4-46.3); Red Blood Count 3.03 M/uL (4.2-5.4); White Blood Count 4.68 K/uL (4.8-10.8)
--- NOTE | 2018-09-18 08:44 | Anesthesiology Progress Note ---
Date of Service September 18, 2018 Anesthesia Post Procedure Vital Signs Vital Signs: Temp Pulse Resp BP BP Pulse Ox 09/18/18 07:12 36.8 C 103 H 16 130/83 98 09/18/18 04:27 36.7 C 93 H 17 126/83 97 09/17/18 23:00 36.8 C 82 21 106/69 95 09/17/18 19:10 36.9 C 92 H 16 114/72 90 09/17/18 15:52 36.7 C 92 H 18 109/72 98 09/17/18 15:30 36.8 C 91 H 20 126/77 991 H 09/17/18 15:20 36.8 C 92 H 21 126/77 97 09/17/18 15:10 36.8 C 101 H 22 116/77 97 09/17/18 15:00 36.8 C 91 H 18 106/64 97 09/17/18 14:50 36.9 C 89 18 90/52 L 96 09/17/18 14:43 36.9 C 94 H 16 84/51 L 96 09/17/18 11:21 36.8 C 96 H 16 105/71 96 Notes Mental Status: alert / awake / arousable Patient Amnestic to Procedure: Yes Nausea / Vomiting: adequately controlled Pain: adequately controlled Airway Patency, RR, SpO2: stable & adequate BP & HR: stable & adequate Hydration State: stable & adequate Anesthetic Complications: no major complications apparent Notes: pt states she had migraine postop but does not necessarily think it was from anesthesia; she thinks it was triggered from stress; Migraine has resolved.
--- NOTE | 2018-09-18 15:15 | Discharge Summary ---
Date of Service September 18, 2018 Admission HPI Per Admitting Provider For EGD Principal Diagnosis GI bleed due to ulcer w visible vessel Discharge Exam General she is awake and alert pleasant no distress. HEENT normocephalic atraumatic mucous members moist. Breathing unlabored no accessory muscle use good effort. Skin shows no rashes no pallor or icterus. CN 2-12 grossly intact gross motor and sensory intact. Discharge Data Allergies Allergy/AdvReac Type Severity Reaction Status Date / Time No Known Allergies Allergy Unverified 09/16/18 21:22 Consultations 09/17/18 00:27 ED Decision to Admit Stat 09/17/18 02:55 Consult Gastroenterology Routine Procedures Performed Operation Date: 09/17/18 14:00 Actual Procedures p Esophagogastroduodenoscopy Hemostasis(Not Applicable) - Bandar Woo Attending MD: Bandar Woo MD Procedure: Upper GI endoscopy Providers: Bandar Woo MD Referring MD: Referred Self Indications: Hematemesis Medicines: Propofol total dose 200 mg IV, Lidocaine 40 mg IV Complications: No immediate complications. Estimated Blood Loss: Estimated blood loss: none. Procedure: Pre-Anesthesia Assessment: - Prior to the procedure, a History and Physical was performed, and patient medications, allergies and sensitivities were reviewed. The patient's tolerance of previous anesthesia was reviewed. - The risks and benefits of the procedure and the sedation options and risks were discussed with the patient. All questions were answered and informed consent was obtained. After obtaining informed consent, the endoscope was passed under direct vision. Throughout the procedure, the patient's blood pressure, pulse, and oxygen saturations were monitored continuously. The Endoscope was introduced through the mouth, and advanced to the body of the stomach. The upper GI endoscopy was accomplished without difficulty. The patient tolerated the procedure well. Findings: The Z-line was regular and was found 39 cm from the incisors. The examined esophagus was normal. Evidence of a Fitz-en-Y gastrojejunostomy was found. The gastrojejunal anastomosis was characterized by ulceration. This was not traversed. [Jejunojejunal Description]. [Xhwt-tq-Ixqbuwi Examined?] [Ipae-ag-Faqzkkk Length] [Tyay-ex-Syifnnm Description]. Two non-bleeding linear gastric ulcers with a visible vessel were found at the anastomosis. The largest lesion was 7 mm in largest dimension. For hemostasis, two hemostatic clips were successfully placed (MR conditional). There was no bleeding during, or at the end, of the procedure. Impression: - Z-line regular, 39 cm from the incisors. - Normal esophagus. - Fitz-en-Y gastrojejunostomy with gastrojejunal anastomosis characterized by ulceration. - Non-bleeding gastric ulcers with a visible vessel. Clips (MR conditional) were placed. - No specimens collected. Recommendation: - [facility]. Bandar Woo M.D. Bandar Woo MD Ordered Studies 09/16/18 20:15 CT abd pelvis IV con only Stat Hospital Course (1) Upper gastrointestinal hemorrhage: Related to ulcers. Suffered a significant amount of acute blood loss anemia, but did not require transfusion. Now appears stable and feeling well. Stable for discharge to home. Ulcers appear to have been predominantly brought about by Excedrin, she has been cautioned to cease all aspirin/Excedrin/NSAIDs and avoid alcohol for at least several weeks. Protonix 40 mg twice daily for the short, but indefinite future. Reducing to daily and eventually DC entirely based on how she is doing and follow-up with her PCP and gastroenterology. Possible need for follow-up EGD if there are any questions, or any difficulty with her hemoglobin improving. (2) History of peptic ulcer: See above (3) Acute blood loss anemia: Hemoglobin now 9.1. Appearing hemodynamically stable, feeling good. Follow-up CBC later this week (4) Headache: Manjit appears to have classic cycle of migraine and tension headaches playing off of each other, the suboccipital tension headaches being a major causative role of her overall headache cycle. Given that we need to get her off of Excedrin, and given that we want to prevent rebound headaches with other [id number]-[id number]'s, OMT directed at alleviating the tension headaches with Imitrex directed specifically for her migraine days appears to be pretty plausible approach to improve her situation. Seems to be furthered by the fact that she showed a very good response to 1 treatment with OMT. Would anticipate ongoing OMT as an outpatient to alleviate the tension headaches, and to continue to educate on more judicious use of the Imitrex specifically for migraines. (5) Somatic dysfunction of cervical region: See above, OMT as an outpatient. Total Time Total Time Spent Total Time Spent (In Minutes): >30 Discharge Plan Discharge Items Patient Disposition: Home - Self-Care Reason For Visit: HEMATEMESIS Discharge Diagnosis: upper GI bleed due to ulcer Discharge Goals: Diagnostic testing and Therapeutic intervention Activity: Resume your previous activity Non-emergency contact: Primary Care Provider and Film Laboratory Technician Call non-emergency contact if: you have any medication questions Follow-up/Referrals: Jagruti Seay [Primary Care Provider] - Diet: Regular Addtl Provider Instructions: GI bleeding -due to ulcer which appears to have mostly been brought on by excedrin -obviously, stop excedrin (and avoid any aspirin or anti-inflammatory (aleve, ibuprofen, etc) -tylenol (acetaminophen) is OK as long as you keep it under 2000mg in a day -take protonix (pantoprazole) twice a day for the foreseeable future -- once it's clear this is healing/improving, Martha and Dr Woo will be able to guide you on dropping it down to once a day. depending on how you're doing, I'd expect the twice a day to be somewhere around 1-3 months, with once a day for a while thereafter. If things are at all confusing on how you're recovering, Dr Woo may need to repeat an EGD to check on healing -avoid alcohol for at least the next several weeks -- it's a fairly concentrated solution that acts to dry out mucosa, so it slows down/impedes healing -if you feel weak/lightheaded over the next two weeks - assume it's a symptom of blood loss until proven otherwise (ie get checked out right away) -of course, if you have recurrence of bleeding, also get checked out right away. headaches -it appears that your headaches are a pretty classic "vicious cycle" of tension headaches playing off of migraine headaches -- usually what happens is that the tension headache causes the bulk of the daily headaches, and the head-pain can be a trigger for migraine headaches, then the migraine headaches make the tension headaches worse, and the whole situation cycles -the migraines are going to be the ones that are more increased in intensity, with the flashy/jaggy light you described; you noted those seem to be around 3-4 a month -the rest of the headaches are quite likely all tension -"the anatomy of a tension headache" is generally started with tightness in the muscles that tie our head to our neck - called the suboccipital muscles. these muscles not only can create pain at the back of the head/neck, but because a nerve (the greater occipital nerve) runs through them and gives sensation up and around the top of our head, tightness in the suboccipital muscles can then put pressure on the greater occipital nerve and create a headache that covers most of our head -the goal will be to try to go after each type of headache individually to treat more precisely and reduce your overall amount of headaches -migraine - when you have the jagged light AND it's clear that the headache is worse in intensity, this would signify a migraine --> that would be when it's worth taking your imitrex. on those days, take the imitrex as early into the headache as it's clear that you're dealing with a migraine, as migraines tend to respond more quickly / better when triptan medications are taken earlier in the course. don't take the imitrex if it's not clear that it's a migraine, though, as triptans treat migraines by constricting the dilated blood vessels that lead to a migraine, so the imitrex will do nothing to help with a tension headache -tension headache - the goal will be to settle the tension in those suboccipital muscles to reduce the trigger causing the tension headaches, and reduce the severity/frequency of those (and if all goes perfect, also reduce the amount of triggering of migraines). because pain medications only really "cover" the symptoms of a tension headache rather than reducing the actual cause, and because (in a cruel stroke of irony) taking pain medications routinely for tension headaches can create a third type of headache called rebound headaches, it's going to be better to have hands-on manipulative medicine as the mainstay to treat the tension headaches -in [facility] ([facility]'s practice, but at the [facility]) two of our residents are DO's that are quite good at manipulative medicine (OMT) - Dr Ron Acosta and Dr Joseph Reyna. We'd recommend that you see either Dr Acosta or Dr Reyna to work on these tight muscles to try to get ahead of the headaches. Because of "muscle memory" (the same thing that makes it take a while to learn to hit a slapshot or swing a golf club), usually it takes a degree of repeated manipulative medicine to get treatments to "stick." Ideally you'll be seeing either Dr Acosta or Axel pretty frequently (no less than weekly, maybe even a little more at first if possible) for the next 1-2 months, then if things are improving, they'll be able to start to back things off to less and less often, until either you just need to come for a periodic "tune up," or, ideally, only if the headache process starts to regress. In my experience when I used to be in the office, I'd venture that somewhere around 75% of chronic headache patients find this approach worth their while, and in general because the treatment modalities are soft tissue manipulation technique s, the only real risk is your time. technical for if you run into issues while you travel: -presented to [facility], [facility] ([phone] main line, [facility] Hospitalist team, [facility] team) late on 09/16 with hematemesis. Bleeding stopped spontaneously/with protonix gtt, EGD on 09/17 showed ulcer with visible vessel but no longer bleeding -- clipped. discharged on protonix 40mg bid, no asa/nsaids/EtOH. BP at time of dc 130/83, Hgb 9.1 (admitting Hgb 12.8) - felt good, no symptoms of anemia/hemodynamic issues. Plan at discharge for follow up Hgb /Wednesday, ongoing PCP and GI follow up as outpatient. Prescriptions: New pantoprazole 40 mg tablet,delayed release (DR/EC) 40 mg PO BID Qty: 60 RF: 0 Continued sumatriptan succinate 50 mg tablet 50 mg PO UD RF: 0 Discontinued lisinopril 10 mg tablet 10 mg PO QAM RF: 0 omeprazole 20 mg capsule,delayed release(DR/EC) 20 mg PO QAM RF: 0 diphenhydramine-acetaminophen [Tylenol PM Extra Strength] 25-500 mg Tablet 2 tab PO HS PRN (Reason: Migraine Headache) RF: 0 Excedrin Extra Strength 250-250-65 mg Tablet 2 tab PO Q6H PRN (Reason: Migraine Headache) RF: 0 Stand-Alone Forms: My [facility] Discharge Orders: Discharge Order (Routine); Ordered 09/18/18 Ordered By: Segundo Kaiser Admission Data Admit Date/Time: 09/17/18 01:29 Attending Provider: Segundo Kaiser Admit Provider: Loki France Primary Care Provider: Jagruti Seay Other Providers: Shaka Duff ; Bandar Woo Service: Telemetry Medical Other Interventions: Discharge Summary Assessment (RN) Last Done: 09/18/18 10:08 DC Date/Time DO NOT enter until pt leaves facility: 09/18/18 10:23
--- NOTE | 2018-09-19 07:34 | Consultation Report ---
DATE OF CONSULTATION: 09/17/2018 REASON FOR EVALUATION: Hematemesis. HISTORY OF PRESENT ILLNESS: The patient is a 52-year-old who presented to the ER last night with several episodes of bright red hematemesis. The patient reports that she has been having some epigastric abdominal pain for a couple of days, but was able to work yesterday but came home and was lying on the couch. Later that evening, she vomited 3 times filling the toilet with blood. She came to the Emergency Room where she vomited twice more and was hospitalized. She was a little bit tachycardic and hemoglobin was in the 12 range, today it is down to 10. She has had no more bleeding since about 7:00 last night. Of note is that she has been taking Excedrin for migraine headaches, which contains aspirin. The patient also has had gastric bypass by Fitz-en-Y technique 13 years ago for obesity and had an operation for pyloric stenosis prior to that. Currently, the patient is stable and an EGD has been requested. PAST MEDICAL HISTORY: Remarkable for pyloric stenosis, Fitz-en-Y gastric bypass for obesity and migraine headaches. She also has hypertension. MEDICATIONS: Excedrin, Tylenol PM, lisinopril, omeprazole and sumatriptan. ALLERGIES: None. FAMILY HISTORY: Noncontributory. SOCIAL HISTORY: The patient is , lives with her , works outside the home. They are planning to leave today for [place], [place], for summer vacation. REVIEW OF SYSTEMS: Negative other than for epigastric pain. The patient has been n.p.o. after midnight. PHYSICAL EXAMINATION: GENERAL: The patient appears in no acute distress. VITAL SIGNS: Blood pressure is 121/71, pulse 100, respirations 21, pulse ox is 97% on room air. ABDOMEN: Shows a midline epigastric scar, which is well healed. There is some tenderness in the epigastric area. No mass or rebound. EXTREMITIES: Showed no clubbing, cyanosis, or edema. NEUROLOGIC: Grossly normal. IMPRESSION AND PLAN: The patient has hematemesis from an upper GI bleed. Her BUN, creatinine ratio is elevated. She has dropped her hemoglobin 2 grams overnight and her stool is heme positive. She is currently receiving IV Protonix. I suspect that she has either a gastric or anastomotic ulcer from her taking Excedrin. Plan on continuing her current medications and scheduling her for an EGD later today.
== END 2018-09-18 10:23 | disposition home or self-care (01) | DRG 378 ==
LOC: ED 19:47 → SUATTDRO 09-17 01:29 → 2N 09-17 01:29